=== PATIENT | male | born 1985 | race Caucasian/White ===

== ENCOUNTER 2021-01-12 12:13 | Inpatient (IN) | payer OTHER ==
[~2021-01-12] VITALS: Ht 177.8 cm; Wt 75.0 kg
[2021-01-12 13:22] LABS: COVID AG,FIA SOURCE NASOPHARYNGEAL
[2021-01-12 13:25] LABS: BASOPHILS % (AUTO) 0.4 % (0.0-2.0); EOSINOPHILS % (AUTO) 0.6 % (1.0-6.0); HEMATOCRIT 41.1 % (41-53); HEMOGLOBIN 14.2 g/dL (13.5-17.5); LYMPHOCYTES # (AUTO) 0.8 K/uL (1.0-4.8); LYMPHOCYTES % (AUTO) 11.8 % (22.0-44.0); MEAN CORPUSCULAR HGB CONC 34.5 G/dL (31.0-37.0); MEAN CORPUSCULAR VOLUME 87 fL (80-100); MONOCYTES # (AUTO) 0.2 K/uL (0.1-1.0); MONOCYTES % (AUTO) 3.3 % (2.0-9.0); NEUTROPHILS # (AUTO) 5.8 K/uL (1.8-7.7); NEUTROPHILS % (AUTO) 83.9 % (40.0-70.0); PLATELET COUNT (AUTO) 192 K/uL (150-450); RED BLOOD CELL COUNT(AUTO) 4.73 MIL/uL (4.50-5.90); RED CELL DISTRIBUTION WIDTH 13.9 % (11.5-14.5)
[2021-01-12] MEDS ORDERED: 0.9% SODIUM CHLORIDE 10 ML SYRINGE IVP PRN (13:30)
[2021-01-12] MEDS ORDERED: ACETAMINOPHEN 325 MG TABLET PO PRN (13:30)
[2021-01-12] MEDS ORDERED: ALBUTEROL SULFATE 2.5 MG/0.5 ML NEB SOLUTION NEB PRN (13:30)
[2021-01-12] MEDS ORDERED: MAGNESIUM HYDROXIDE SUSPENSION 30 ML UDCUP PO PRN (13:30)
[2021-01-12] MEDS ORDERED: IPRATROPIUM BROMIDE 0.5 MG/2.5 ML NEB SOLUTION NEB PRN (13:30)
[2021-01-12] MEDS ORDERED: DOCUSATE SODIUM 100 MG CAPSULE PO PRN (13:30)
[2021-01-12] MEDS ORDERED: ONDANSETRON HCL 4 MG/2 ML VIAL IVP PRN (13:30)
[2021-01-12] MEDS ORDERED: BISACODYL 10 MG RECTAL RECTAL SUPPOSITORY PR PRN (13:30)
[2021-01-12 13:36] LABS: ANION GAP 6 mmol/L (8-16); CALCIUM, TOTAL 8.7 mg/dL (8.8-10.5); CARBON DIOXIDE 29 mmol/L (22-29); CHLORIDE 105 mmol/L (98-107); CREATININE 1.07 mg/dL (0.60-1.30); GLOMERULAR FILTR. RATE CALC > 60 mL/min (>60); GLUCOSE,RANDOM 105 mg/dL (70-110); POTASSIUM 4.1 mmol/L (3.5-5.1); SODIUM SERUM 140 mmol/L (136-145); UREA NITROGEN, BLOOD 18 mg/dL (7-18)
[2021-01-12 13:41] LABS: ALANINE AMINOTRANSFERASE 25 U/L (12-78); ALBUMIN 3.9 g/dL (3.4-5.0); ALKALINE PHOSPHATASE 65 U/L (46-116); ASPARTATE AMINOTRANSFERASE 16 U/L (15-37); BILIRUBIN,TOTAL 0.3 mg/dL (0.1-1.0); TOTAL PROTEIN, SERUM 7.5 g/dL (6.4-8.2)
[2021-01-12 14:00] LABS: AMPHET/METH SCREEN,URINE POSITIVE (NEGATIVE); BARBITURATE SCREEN, URINE NEGATIVE (NEGATIVE); BENZODIAZEPINES SCREEN,URINE NEGATIVE (NEGATIVE); CANNABINOID SCREEN,URINE POSITIVE (NEGATIVE); COCAINE SCREEN,URINE NEGATIVE (NEGATIVE); METHADONE SCREEN, URINE NEGATIVE (NEGATIVE); OPIATE SCREEN,URINE NEGATIVE (NEGATIVE); PHENCYCLIDINE SCREEN,URINE NEGATIVE (NEGATIVE)
[2021-01-12 15:00] VITALS: BP 145/83
[2021-01-12] MEDS: MULTIVITAMINS, THERAPEUTIC TABLET PO SCH (16:26)
[2021-01-12] MEDS: LORazepam 0.5 MG TABLET PO PRN (18:32)
[2021-01-12 23:46] VITALS: BP 135/94
[2021-01-13] MEDS: LORazepam 0.5 MG TABLET PO PRN ×2 (00:29→07:00)
[2021-01-13 04:00] VITALS: BP 144/71
[2021-01-13 08:05] LABS: BASOPHILS % (AUTO) 0.3 % (0.0-2.0); EOSINOPHILS % (AUTO) 1.1 % (1.0-6.0); HEMATOCRIT 43.1 % (41-53); HEMOGLOBIN 15.1 g/dL (13.5-17.5); LYMPHOCYTES % (AUTO) 14.9 % (22.0-44.0); MEAN CORPUSCULAR HEMOGLOBIN 30.5 pg (26.0-34.0); MEAN CORPUSCULAR HGB CONC 35.1 G/dL (31.0-37.0); MEAN CORPUSCULAR VOLUME 87 fL (80-100); MONOCYTES # (AUTO) 0.3 K/uL (0.1-1.0); MONOCYTES % (AUTO) 4.7 % (2.0-9.0); NEUTROPHILS # (AUTO) 5.4 K/uL (1.8-7.7); PLATELET COUNT (AUTO) 205 K/uL (150-450); RED BLOOD CELL COUNT(AUTO) 4.96 MIL/uL (4.50-5.90); RED CELL DISTRIBUTION WIDTH 13.2 % (11.5-14.5)
[2021-01-13 08:09] LABS: ANION GAP 10 mmol/L (8-16); CALCIUM, TOTAL 8.7 mg/dL (8.8-10.5); CARBON DIOXIDE 26 mmol/L (22-29); CHLORIDE 104 mmol/L (98-107); CREATININE 0.95 mg/dL (0.60-1.30); GLOMERULAR FILTR. RATE CALC > 60 mL/min (>60); GLUCOSE,RANDOM 96 mg/dL (70-110); POTASSIUM 3.7 mmol/L (3.5-5.1); SODIUM SERUM 140 mmol/L (136-145); UREA NITROGEN, BLOOD 13 mg/dL (7-18)
[2021-01-13 08:29] VITALS: BP 126/66
[2021-01-13] MEDS: FOLIC ACID 1 MG TABLET PO SCH (08:29)
[2021-01-13] MEDS: THIAMINE 100 MG TABLET PO SCH (08:29)
[2021-01-13] MEDS: MULTIVITAMINS, THERAPEUTIC TABLET PO SCH (08:29)
[2021-01-13] MEDS: GABAPENTIN 400 MG CAPSULE PO SCH ×4 (08:30→20:55)
[2021-01-13] MEDS: FAMOTIDINE 20 MG TABLET PO SCH (08:30)
[2021-01-13 11:44] VITALS: BP 141/92
[2021-01-13 16:25] VITALS: BP 142/97
[2021-01-13 19:49] VITALS: BP 144/92
[2021-01-13 23:16] VITALS: BP 128/89
[2021-01-14] MEDS: ONDANSETRON HCL 4 MG TABLET PO PRN ×2 (02:39→11:25)
[2021-01-14] MEDS: LORazepam 0.5 MG TABLET PO PRN ×2 (02:41→20:29)
[2021-01-14] MEDS ORDERED: INFLUENZA VIRUS VACCINE QVS 2021-22 (6MO+)/PF 60 MCG/0.5 ML SYRINGE IM. ONE (03:00)
[2021-01-14 03:48] VITALS: BP 131/88
[2021-01-14] MEDS: MULTIVITAMINS, THERAPEUTIC TABLET PO SCH (07:57)
[2021-01-14] MEDS: FAMOTIDINE 20 MG TABLET PO SCH (07:57)
[2021-01-14] MEDS: FOLIC ACID 1 MG TABLET PO SCH (07:57)
[2021-01-14] MEDS: THIAMINE 100 MG TABLET PO SCH (07:57)
[2021-01-14] MEDS: GABAPENTIN 400 MG CAPSULE PO SCH ×4 (07:58→20:29)
[2021-01-14] MEDS: CloNIDine HCL 0.1 MG TABLET PO PRN ×2 (07:58→17:01)
[2021-01-14 08:03] VITALS: BP 126/67
[2021-01-14] MEDS ORDERED: LOPERAMIDE HCL 2 MG CAPSULE PO PRN (08:15)
[2021-01-14 16:01] VITALS: BP 129/81
[2021-01-14 19:43] VITALS: BP 114/68
[2021-01-14 23:12] VITALS: BP 118/89
[2021-01-14] MEDS ORDERED: METOPROLOL SUCCINATE 25 MG ER TABLET PO ONE (23:30)
[2021-01-15 04:26] VITALS: BP 126/88
[2021-01-15] MEDS: LORazepam 0.5 MG TABLET PO PRN (04:34)
[2021-01-15 06:22] LABS: BASOPHILS % (AUTO) 0.4 % (0.0-2.0); EOSINOPHILS % (AUTO) 0.3 % (1.0-6.0); HEMOGLOBIN 16.5 g/dL (13.5-17.5); LYMPHOCYTES # (AUTO) 1.5 K/uL (1.0-4.8); LYMPHOCYTES % (AUTO) 16.2 % (22.0-44.0); MEAN CORPUSCULAR HEMOGLOBIN 30.3 pg (26.0-34.0); MEAN CORPUSCULAR HGB CONC 35.1 G/dL (31.0-37.0); MEAN CORPUSCULAR VOLUME 86 fL (80-100); MONOCYTES # (AUTO) 0.6 K/uL (0.1-1.0); MONOCYTES % (AUTO) 6.6 % (2.0-9.0); NEUTROPHILS % (AUTO) 76.5 % (40.0-70.0); PLATELET COUNT (AUTO) 229 K/uL (150-450); RED BLOOD CELL COUNT(AUTO) 5.45 MIL/uL (4.50-5.90); RED CELL DISTRIBUTION WIDTH 13.8 % (11.5-14.5)
[2021-01-15 06:30] LABS: ANION GAP 12 mmol/L (8-16); CALCIUM, TOTAL 9.2 mg/dL (8.8-10.5); CARBON DIOXIDE 25 mmol/L (22-29); CHLORIDE 104 mmol/L (98-107); CREATININE 1.19 mg/dL (0.60-1.30); GLOMERULAR FILTR. RATE CALC > 60 mL/min (>60); GLUCOSE,RANDOM 133 mg/dL (70-110); POTASSIUM 3.5 mmol/L (3.5-5.1); SODIUM SERUM 141 mmol/L (136-145); UREA NITROGEN, BLOOD 21 mg/dL (7-18)
[2021-01-15 07:27] VITALS: BP 136/69
[2021-01-15] MEDS: THIAMINE 100 MG TABLET PO SCH (07:59)
[2021-01-15] MEDS: FAMOTIDINE 20 MG TABLET PO SCH (07:59)
[2021-01-15] MEDS: MULTIVITAMINS, THERAPEUTIC TABLET PO SCH (07:59)
[2021-01-15] MEDS: GABAPENTIN 400 MG CAPSULE PO SCH ×4 (07:59→20:26)
[2021-01-15] MEDS: FOLIC ACID 1 MG TABLET PO SCH (07:59)
[2021-01-15 10:53] VITALS: BP 135/71
[2021-01-15 15:11] VITALS: BP 133/83
[2021-01-15 20:22] VITALS: BP 137/88
[2021-01-15] MEDS ORDERED: INFLUENZA VIRUS VACCINE QVS 2021-22 (6MO+)/PF 60 MCG/0.5 ML SYRINGE IM. ONE (22:15)
[2021-01-15] MEDS: ONDANSETRON HCL 4 MG TABLET PO PRN (23:47)
[2021-01-16 04:55] VITALS: BP 121/90
[2021-01-16] MEDS ORDERED: PROMETHAZINE HCL 25 MG RECTAL SUPPOSITORY PR ONE (05:30)
[2021-01-16 07:37] VITALS: BP 127/91
[2021-01-16] MEDS: MULTIVITAMINS, THERAPEUTIC TABLET PO SCH (08:15)
[2021-01-16] MEDS: FOLIC ACID 1 MG TABLET PO SCH (08:15)
[2021-01-16] MEDS: THIAMINE 100 MG TABLET PO SCH (08:15)
[2021-01-16] MEDS: GABAPENTIN 400 MG CAPSULE PO SCH ×4 (08:15→20:58)
[2021-01-16] MEDS: FAMOTIDINE 20 MG TABLET PO SCH (08:15)
[2021-01-16] MEDS: LORazepam 0.5 MG TABLET PO PRN (12:37)
[2021-01-16] MEDS: NICOTINE 21 MG/24 HOUR PATCH TD SCH (15:50)
[2021-01-16 16:04] VITALS: BP 122/87
[2021-01-16 19:32] VITALS: BP 145/88
[2021-01-17 00:04] VITALS: BP 127/81
[2021-01-17 04:55] VITALS: BP 143/88
[2021-01-17 07:33] VITALS: BP 120/90
[2021-01-17] MEDS: THIAMINE 100 MG TABLET PO SCH (07:59)
[2021-01-17] MEDS: FOLIC ACID 1 MG TABLET PO SCH (07:59)
[2021-01-17] MEDS: GABAPENTIN 400 MG CAPSULE PO SCH (07:59)
[2021-01-17] MEDS: MULTIVITAMINS, THERAPEUTIC TABLET PO SCH (07:59)
[2021-01-17] MEDS: NICOTINE 21 MG/24 HOUR PATCH TD SCH (07:59)
[2021-01-17] MEDS: FAMOTIDINE 20 MG TABLET PO SCH (07:59)
== END 2021-01-17 13:50 | DRG 897 ==
LOC: EMS 12:13 → 6S 13:45
PROVIDERS: ADMIT Internal Medicine; ATTEND Internal Medicine
DX: F19.239 Other psychoactive substance dependence with withdrawal, unspecified (principal); F11.229 Opioid dependence with intoxication, unspecified; B19.20 Unspecified viral hepatitis C without hepatic coma; R11.2 Nausea with vomiting, unspecified; F17.210 Nicotine dependence, cigarettes, uncomplicated; Z20.822 Contact with and (suspected) exposure to COVID-19; R19.7 Diarrhea, unspecified; R00.0 Tachycardia, unspecified; F15.90 Other stimulant use, unspecified, uncomplicated; Z02.89 Encounter for other administrative examinations; Z28.21 Immunization not carried out because of patient refusal
CPT/HCPCS: 80048; 80053; 85025; 99285; G0480; J2405; Q0162